=== PATIENT | male | born 1955 | race Caucasian/White ===

== ENCOUNTER → 2019-11-19 08:08 | Outpatient (REF) | payer OTHER, SELFPAY | LOC: ANHLAB 08:08 | PROVIDERS: Visit Provider Nurse Practitioner Family | DX: C44.729 Squamous cell carcinoma of skin of left lower limb, including hip (principal) | CPT/HCPCS: 88305; 88331 ==

== ENCOUNTER 2020-03-10 03:13 | Outpatient (CLI) | payer OTHER, SELFPAY ==
[2020-03-10 19:05] LABS: SARS-CoV-2 RNA PCR Negative
== END 2020-03-10 03:14 | disposition home or self-care (01) ==
LOC: ANHCOVIDDT 03:14
PROVIDERS: PCP Family Medicine; Visit Provider Internal Medicine Gastroenterology
DX: Z01.812 Encounter for preprocedural laboratory examination (principal); Z20.828 Contact with and (suspected) exposure to other viral communicable diseases
CPT/HCPCS: 87635; C9803; U0003

== ENCOUNTER 2020-03-12 00:22 | Day surgery (SDC) | payer OTHER, SELFPAY ==
[2020-03-09 09:32] VITALS: BMI 29.2
[2020-03-12 10:00] VITALS: BP 125/93; PULSE 76; RESP 20; TEMP 36.8; O2SAT 96; BMI 31.6
[2020-03-12] MEDS: LACTATED RINGERS 1,000 ML 150 ML IV CONT (10:15)
--- NOTE | 2020-03-12 10:32 | P.HP_ITS ---
History of Present Illness History of Present Illness Consent: Risks, benefits, and alternatives have been discussed and questions answered. Patient agrees to proceed with procedure. Chief complaint: Neoplasm Screening Narrative: Ted Hi is a 64 year old W male Referred for screening colonoscopy. Patient a colonoscopy 10 years ago which was normal. Patient denies any GI tract symptoms. No family history of colon polyps or colon cancer [facility], [facility] Past Medical History Medical History (Updated 03/12/20 @ 10:34 by Arturo Garcia MD) Aftercare following left shoulder joint replacement surgery CPAP (continuous positive airway pressure) dependence History of pneumothorax Sleep apnea Surgical History Surgical History History of cardiac radiofrequency ablation History of shoulder replacement 2017 Family History Family History Mother Breast cancer Sibling Esophageal cancer Social History Social History Smoking status: Never smoker Alcohol intake: current Drinks per week: 14 Substance use: never Substance use type: does not use Living arrangements: with family Spiritual care concerns: No Meds Home Medications and Allergies Home Medications Medication Instructions Recorded Confirmed Type No Home Medications 03/09/20 03/09/20 History Allergies Allergy/AdvReac Type Severity Reaction Status Date / Time No Known Allergies Allergy Verified 03/12/20 09:59 Vital Signs Vital Signs - 24 hr 03/12/20 10:00 Temperature 36.8 C Pulse Rate 76 Respiratory Rate 20 Blood Pressure 125/93 H Pulse Oximetry 96 Exam Const: Orientation/consciousness: patient oriented x3 Resp: Auscultation: clear to auscultation bilaterally Cardio: Rate: regular rate Rhythm: regular rhythm Heart sounds: no murmurs GI: GI Palp: Yes Soft to palpation, No Tenderness to palpation present (GI), Yes No hepatosplenomegaly present and No Palpable mass present Auscultation: normal bowel sounds Neuro: General: patient oriented x3 and no focal motor deficits Extrem: General: no pedal edema Assessment and Plan Additional Plan screening colonoscopy in average risk patient
--- NOTE | 2020-03-12 10:34 | WPDANESEPPF ---
Anes - Initial Pre Proc Eval Procedure: Operation Date: 03/12/20 10:30 Proposed Procedures p Screening Colonoscopy - Arturo Garcia MD Date/Time: 03/12/20 10:34 Surgeon: Arturo Garcia MD Pre Op Diagnosis: Neoplasm Screening Patient Data Age: 64 Gender: M Height: 1.68 m Weight: 89 kg Last Vital Signs Temp 36.8 C 03/12/20 10:00 Pulse 76 03/12/20 10:00 Resp 20 03/12/20 10:00 BP 125/93 H 03/12/20 10:00 Pulse Ox 96 03/12/20 10:00 Allergies Allergy/AdvReac Type Severity Reaction Status Date / Time No Known Allergies Allergy Verified 03/12/20 09:59 Home Medications Medication Instructions Recorded Confirmed Type No Home Medications 03/09/20 03/09/20 History Patient hx anesthesia problems: none Family hx anesthesia problems: none PMFSH Past Medical History Medical History (Updated 03/12/20 @ 10:35 by Troy Chacon MD) Aftercare following left shoulder joint replacement surgery CPAP (continuous positive airway pressure) dependence History of pneumothorax Obesity Sleep apnea Surgical History Surgical History History of cardiac radiofrequency ablation History of shoulder replacement 2017 Family History Family History Mother Breast cancer Sibling Esophageal cancer Social History Social History Smoking status: Never smoker Alcohol intake: current Drinks per week: 14 Substance use: never Substance use type: does not use Living arrangements: with family Spiritual care concerns: No Anes - Eval Final PreProcedure Day of Procedure 03/12/20 10:34 Patient weight: overweight Heart: regular rate and rhythm Lungs: clear to auscultation and normal air movement Airway: Mallampati scale class II Neurological: alert and oriented Last oral intake: >/= 8 hours ASA classification: II Emergent: no Anesthetic plan: proceed Anesthesia type and monitoring: general GIVS Informed Consent: The patient's anesthetic plan and its attendant risks and benefits were discussed with the patient/family/POA. Questions were solicited and answers provided to the satisfaction of the patient/family/POA.
[2020-03-12 11:34] VITALS: BP 108/77; PULSE 62; RESP 20; O2SAT 96
[2020-03-12 11:44] VITALS: BP 116/81; PULSE 61; RESP 19; O2SAT 95
[2020-03-12 11:54] VITALS: BP 119/84; PULSE 66; RESP 12; O2SAT 96
== END 2020-03-12 12:14 | disposition home or self-care (01) ==
PROVIDERS: PCP Family Medicine; Visit Provider Internal Medicine Gastroenterology
PROC: 0DJD8ZZ Inspection of Lower Intestinal Tract, Via Natural or Artificial Opening Endoscopic (ICD-10-PCS; CPT 45378; principal; 2020-03-12 10:30)
DX: Z12.11 Encounter for screening for malignant neoplasm of colon (principal); D12.2 Benign neoplasm of ascending colon; G47.30 Sleep apnea, unspecified; Z96.619 Presence of unspecified artificial shoulder joint; Z80.3 Family history of malignant neoplasm of breast; Z80.0 Family history of malignant neoplasm of digestive organs
CPT/HCPCS: 45385; 88305; J2704; J7120

== ENCOUNTER 2022-08-28 14:28 | Outpatient (NON) | payer OTHER, SELFPAY | END 2022-08-28 14:29 | disposition home or self-care (01) | LOC: ANHLAB 14:28 | PROVIDERS: PCP Family Medicine; Visit Provider Nurse Practitioner | DX: C44.311 Basal cell carcinoma of skin of nose (principal) | CPT/HCPCS: 88305; 88331 ==

== ENCOUNTER 2024-12-23 00:46 | Day surgery (SDC) | payer OTHER, SELFPAY ==
[2024-12-03 14:13] VITALS: BMI 30.7
[2024-12-23 06:59] VITALS: BP 149/88; PULSE 69; RESP 18; TEMP 36.1; O2SAT 98; BMI 31.5
[2024-12-23] MEDS: LACTATED RINGERS 1,000 ML 150 ML IV CONT (07:10)
--- NOTE | 2024-12-23 08:00 | P.PNAN_ITS ---
Anes - Initial Pre Proc Eval Procedure: Operation Date: 12/23/24 08:30 Proposed Procedures p Screening Colonoscopy - Bradley Cortés MD Date/Time: 12/23/24 08:00 Surgeon: Bradley Cortés MD Pre Op Diagnosis: Personal history of colon polyps, unspecified Patient Data Age: 69 Gender: M Height: 1.68 m Weight: 88.6 kg Last Vital Signs Temp 36.1 C L 12/23/24 06:59 Pulse 69 12/23/24 06:59 Resp 18 12/23/24 06:59 BP 149/88 H 12/23/24 06:59 Pulse Ox 98 12/23/24 06:59 O2 Del Method Room Air 12/23/24 06:59 Allergies Allergy/AdvReac Type Severity Reaction Status Date / Time No Known Allergies Allergy Verified 12/23/24 06:57 Home Medications ?Medication ?Instructions ?Recorded ?Confirmed ?Type testosterone cypionate 200 mg/mL 200 mg subcut WEEKLY 12/03/24 12/23/24 History intramuscular oil Patient hx anesthesia problems: none Family hx anesthesia problems: none Results Review: All pre-operative results and documents have been reviewed as part of the pre- operative evaluation. [facility] Past Medical History Medical History Obesity Aftercare following left shoulder joint replacement surgery History of pneumothorax Sleep apnea CPAP (continuous positive airway pressure) dependence Surgical History Surgical History History of cardiac radiofrequency ablation History of shoulder replacement 2017 Family History Family History Mother Breast cancer Sibling Esophageal cancer Social History Social History Smoking status: Never smoker Alcohol intake: current Drinks per week: 4 Substance use: never Substance use type: does not use Living arrangements: with family Spiritual care concerns: No Anes - Eval Final PreProcedure Day of Procedure 12/23/24 08:00 Patient weight: obese Heart: regular rate and rhythm Lungs: clear to auscultation Airway: Mallampati scale class II Neurological: alert and oriented Last oral intake: >/= 8 hours ASA classification: II Emergent: no Anesthetic plan: proceed Anesthesia type and monitoring: general GIVS and standard monitoring Results Review: All pre-operative results and documents have been reviewed as part of the pre- operative evaluation. Informed Consent: The patient's anesthetic plan and its attendant risks and benefits were discussed with the patient/family/POA. Questions were solicited and answers provided to the satisfaction of the patient/family/POA.
--- NOTE | 2024-12-23 08:20 | PM.HPGS ---
History of Present Illness History of Present Illness Consent: Risks, benefits, and alternatives have been discussed and questions answered. Patient agrees to proceed with procedure. Chief complaint: Personal history of colon polyps, unspecified Narrative: Ted Hi is a 69 year old male with colon polyp in 2019 Review of Systems Review of Systems: All systems reviewed & are unremarkable except as noted in HPI and below PMFSH Past Medical History Medical History (Updated 12/23/24 @ 08:22 by Bradley Cortés MD) Colon polyp Obesity Aftercare following left shoulder joint replacement surgery History of pneumothorax Sleep apnea CPAP (continuous positive airway pressure) dependence Surgical History Surgical History History of cardiac radiofrequency ablation History of shoulder replacement 2017 Family History Family History Mother Breast cancer Sibling Esophageal cancer Social History Social History Smoking status: Never smoker Alcohol intake: current Drinks per week: 4 Substance use: never Substance use type: does not use Living arrangements: with family Spiritual care concerns: No Meds Home Medications and Allergies Home Medications ?Medication ?Instructions ?Recorded ?Confirmed ?Type testosterone cypionate 200 mg/mL 200 mg subcut WEEKLY 12/03/24 12/23/24 History intramuscular oil Allergies Allergy/AdvReac Type Severity Reaction Status Date / Time No Known Allergies Allergy Verified 12/23/24 06:57 Vital Signs Vital Signs - 24 hr 12/23/24 06:59 Temperature 97 F L Pulse Rate 69 Respiratory Rate 18 Blood Pressure 149/88 H Pulse Oximetry 98 Oxygen Delivery Room Air Exam Const: General: comfortable and no acute distress HENMT: Face/Nose/Sinus: Normal nares present Eyes: General: appearance normal, both eyes and all related structures Neck: Neck: no JVD Resp: Auscultation: clear to auscultation bilaterally Cardio: Rate: regular rate Rhythm: regular rhythm GI: Inspection: non-distended GI Palp: Yes Soft to palpation Skin: General skin exam: normal color Neuro: Speech: normal speech Extrem: General: normal to inspection Psych: Mental Status: mental status grossly normal Assessment and Plan Assessment and plan (1) Colon polyp: Code(s): K63.5 - Polyp of colon Status: Acute Assessment and Plan: colonoscopy
[2024-12-23 08:40] VITALS: BP 91/57; PULSE 68; RESP 18; O2SAT 93
[2024-12-23 08:50] VITALS: BP 110/59; PULSE 68; RESP 20; O2SAT 95
[2024-12-23 09:00] VITALS: BP 128/71; PULSE 64; RESP 18; O2SAT 98
== END 2024-12-23 09:13 | disposition home or self-care (01) ==
PROVIDERS: PCP Family Medicine; Referring Provider Family Medicine; Visit Provider Internal Medicine Gastroenterology
PROC: 0DJD8ZZ Inspection of Lower Intestinal Tract, Via Natural or Artificial Opening Endoscopic (ICD-10-PCS; CPT 45378; principal; 2024-12-23 08:30)
DX: Z12.11 Encounter for screening for malignant neoplasm of colon (principal); K64.8 Other hemorrhoids; Z86.0100 Personal history of colon polyps, unspecified; E66.9 Obesity, unspecified; Z68.31 Body mass index [BMI] 31.0-31.9, adult
CPT/HCPCS: 45378; J2003; J2704; J7120